=== PATIENT | male | born 1945 | race Caucasian/White ===

== ENCOUNTER 2017-07-06 21:52 | Emergency (ER) | payer MEDICARE, OTHER ==
[2017-07-06] MEDS ORDERED: Acetaminophen/HYDROcodone 325-5 MG Tab PO ONE (23:44)
[2017-07-06] MEDS ORDERED: Acetaminophen/HYDROcodone 325-10 MG Tab PO ONE (23:59)
--- NOTE | 2017-07-07 00:06 | EDM.PDOC ---
ED HPI GENERAL MEDICAL PROBLEM - General Chief Complaint: Headache Stated Complaint: HEADACHE Time Seen by Provider: 07/06/17 22:55 Source of Information: Reports: Patient, RN Notes Reviewed History Limitations: Reports: No Limitations - History of Present Illness INITIAL COMMENTS - FREE TEXT/NARRATIVE: . here with his Chief complaint Left-sided headache History of present illness 72-year-old male had gradual onset of the sided throbbing headache last evening. Waking him every 2 hours during the night and then he would take a couple aspirin tablets for it. because he was taking aspirin, his did not give him his usual hydrocodone, he takes 2 tablets of hydrocodone/acetaminophen 10/325 3 times daily for his back pain.this is because of concerns of acetaminophen overdose. However he has taken a much aspirin that his left ear has decreased hearing. No tinnitus. No loss of vision, no blurred vision No nausea or vomiting with this headache No slurring of speech, facial droop, drooling, weakness of his arms or legs, or balance troubles. Blood pressure was elevated so the helpline recommended he come in promptly for evaluation No chest pain or shortness of breath Headache Pain Score (Numeric/FACES): 6 - Related Data Allergies Allergy/AdvReac Type Severity Reaction Status Date / Time No Known Allergies Allergy Verified 07/06/17 23:32 Home Meds: Home Meds Aspirin 325 mg PO DAILY 08/08/13 [History] Hydrocodone/Acetaminophen [[place] 10-325] 1 - 2 tab PO Q6H PRN 08/08/13 [History] Lisinopril 10 mg PO DAILY 08/08/13 [History] Carvedilol 0.5 tab PO BID 07/06/17 [History] Chlorthalidone 25 mg PO DAILY 07/06/17 [History] amLODIPine [Norvasc] 1 tab PO DAILY 07/06/17 [History] cloNIDine [Catapres] 1 tab PO DAILY 07/06/17 [History] Past Medical History HEENT History: Reports: Cataract, Impaired Vision, Other (See Below) Other HEENT History: retinopathy Cardiovascular History: Reports: Hypertension, [place] Musculoskeletal History: Reports: Fracture Psychiatric History: Reports: Addiction - Past Surgical History HEENT Surgical History: Reports: Cataract Surgery Cardiovascular Surgical History: Reports: Coronary Artery Stent, Other (See Below) Other Cardiovascular Surgeries/Procedures: leg stent GI Surgical History: Reports: Cholecystectomy Neurological Surgical History: Reports: Other (See Below) Other Neurological Surgeries/Procedures: surgery for herniated discs Musculoskeletal Surgical History: Reports: Other (See Below) Other Musculoskeletal Surgeries/Procedures:: foot repair Social & Family History - Tobacco Use Smoking Status *Q: Heavy Tobacco Smoker Years of Tobacco use: 50 Packs/Tins Daily: 2.5 Used Tobacco, but Quit: No Second Hand Smoke Exposure: Yes - Alcohol Use Days Per Week of Alcohol Use: 0 - Recreational Drug Use Recreational Drug Use: No ED ROS GENERAL - Review of Systems Review Of Systems: See Below (vomiting or) Constitutional: Reports: No Symptoms HEENT: Reports: Rhinitis (nothing), Other (he notices some swelling/tenderness under the left side of his jaw). Denies: Eye Pain Respiratory: Reports: No Symptoms (evaluate) Cardiovascular: Reports: No Symptoms GI/Abdominal: Reports: No Symptoms Musculoskeletal: Reports: No Symptoms Skin: Reports: No Symptoms Neurological: Reports: Headache. Denies: Dizziness, Numbness, Paresthesia, Tingling, Difficulty Walking, Change in Speech (once availableusing his) Immunologic: Reports: No Symptoms (blood) - Physical Exam Exam: See Below Exam Limited By: No Limitations General Appearance: Alert, No Apparent Distress, Other (elevated blood pressure other vital signs normal, no difficulty speaking or breathing) Eye Exam: Bilateral Eye: EOMI, Normal Inspection Ears: Normal External Exam, Normal Canal, Normal TMs, Hearing Loss (left ear) Nose: Normal Inspection, Normal Mucosa Throat/Mouth: Normal Inspection, Normal Oropharynx, Normal Voice, No Airway Compromise Head Exam: Atraumatic, Normocephalic Neck: Normal Inspection, Supple, Other (mild tenderness under the left mandible but no discrete swelling noted). No: Lymphadenopathy (R), Lymphadenopathy (L) Respiratory/Chest: No Respiratory Distress, Lungs Clear, No Accessory Muscle Use Cardiovascular: Normal Peripheral Pulses, Regular Rate, Rhythm GI/Abdominal: Soft, Non-Tender Neuro Exam (Abbreviated): Alert, Oriented, No Motor/Sensory Deficits, Other ( normal strength, symmetrical, normal [id number] testing, no facial droop , no difficulty following directions) Back Exam: Normal Inspection Extremities: Normal Inspection, Non-Tender Psychiatric: Normal Affect, Normal Mood Skin Exam: Warm, Dry, Intact, Normal Color, No Rash Course - Vital Signs Last Recorded V/S: Last Vital Signs Temp 36.6 C 07/06/17 23:31 Pulse 97 07/07/17 00:26 Resp 16 07/06/17 23:31 BP 199/108 H 07/07/17 00:26 Pulse Ox 95 07/07/17 00:26 - Orders/Labs/Meds Meds: Medications Discontinued Medications Generic Name Dose Route Start Last Admin Trade Name Annabella PRN Reason Stop Dose Admin Hydrocodone Bitart/Acetaminophen 2 tab 07/06/17 23:44 [place] 325-5 Mg PO 07/06/17 23:45 ONETIME ONE Hydrocodone Bitart/Acetaminophen 2 tab 07/06/17 23:59 07/07/17 00:25 [place] 325-10 Mg PO 07/07/17 00:00 2 tab ONETIME ONE Administration - Re-Assessments/Exams Free Text/Narrative Re-Assessment/Exam: 07/07/17 00:52 healthy-appearing 72-year-old male with new onset of headaches in the last few weeks, left-sided throbbing but no associated neurological symptoms, reassuring examination. Elevated blood pressure but no evidence of hypertensive urgency or emergency. differential diagnoses of his headache includes tension headache, mixed tension migraine, opiate withdrawal headache, among others No history of trauma or signs of on examination to suggest evidence of infection or bleed Hydrocodone/acetaminophen 10/325, 2 tablets by mouth for headache Follow-up primary care persisting symptoms Return to emergency if fever, repeated vomiting, rales balance problems or other new symptoms. Continue usual medications Departure - Departure Time of Disposition: 00:03 Disposition: Home, Self-Care 01 Condition: Good Clinical Impression: Unilateral headache - Discharge Information Instructions: General Headache Without Cause, [id number] Referrals: Preethi Massey MD [Primary Care Provider] - Forms: ED Department Discharge Additional Instructions: continue your current medications Return to emergency promptly if there is loss of vision, loss of use of arm or leg, slurred speech or repeated vomiting or fever
[2017-07-07 00:27] VITALS: BP 199/108
== END 2017-07-07 00:43 | disposition home or self-care (01) ==
LOC: JP.ED 21:52
DX: R51 Headache (principal); I10 Essential (primary) hypertension; E78.00 Pure hypercholesterolemia, unspecified; Z79.82 Long term (current) use of aspirin
CPT/HCPCS: 99284; A9270; 99283

== ENCOUNTER 2021-07-01 14:14 | Emergency (ER) | payer OTHER ==
[2021-07-01] MEDS ORDERED: Albuterol/Ipratropium 3.0-0.5 MG/3 ML Neb Soln NEB ONE (14:39)
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
--- NOTE | 2021-07-01 15:25 | CR ---
FOOT RIGHT 3 views CLINICAL HISTORY:Previous injury FINDINGS:Bones are osteopenic. There is some osteoarthritic change in the tarsal junctions. There are diffuse arterial calcifications. This can be seen with diabetes. IMPRESSION: Osteoporotic changes Osteoarthritic changes noted tarsal junctions No fracture
--- NOTE | 2021-07-01 15:31 | CR ---
CHEST: 2 view CLINICAL HISTORY:Dyspnea COMPARISON:None FINDINGS: Heart size and pulmonary vascularity are normal. There are atherosclerotic changes in the aorta. There is diffuse interstitial prominence and some minimal patchy density suggesting a diffuse pneumonitis. There is a small pleural effusions IMPRESSION: Diffuse predominantly interstitial infiltrate or less likely interstitial edema. Findings are most consistent with pneumonitis Minimal bibasal effusions
[2021-07-01] MEDS ORDERED: Lisinopril 10 MG Tab PO ONE (17:01)
[2021-07-01] MEDS ORDERED: Furosemide 20 MG Tab PO ONE (17:01)
[2021-07-01 18:10] VITALS: BP 157/65; PULSE 95
[2021-07-01] MEDS ORDERED: fentaNYL 100 MCG/2 ML SDV IM ONE (18:32)
--- NOTE | 2021-07-02 06:35 | CRLCT ---
Final Report: INDICATION: Abdominal pain. COMPARISON: None available TECHNIQUE: CT examination of the abdomen and pelvis was performed without contrast enhancement using 2 mm thick axial sections from the lung bases through the pubic symphysis. Oral contrast was not administered. Please note that all CT scans at this facility use dose modulation, iterative reconstruction, and/or weight-based dosing when appropriate to reduce radiation dose to as low as reasonably achievable. FINDINGS: High-density material is scattered throughout the colon extending to the rectum, consistent with previous oral contrast administration or possibly from antacids. In the abdomen, the liver is seen to have prominent intrahepatic ductal dilatation. This is associated with prominent dilatation of the common bile duct to 18 mm and surgical clips from cholecystectomy. The dilatation extends through the pancreatic head, although the common bile duct in the pancreatic head is not quite as dilated, measuring 10 millimeters. The findings are consistent with post-cholecystectomy status. No obstructing mass or definite choledocholithiasis is seen. Recommend correlation with the patient`s LFTs. There is mild calcification in the pancreatic head with a few calcifications scattered throughout the pancreatic body and tail consistent with previous pancreatitis. The pancreas is otherwise normal in appearance with no sign of acute pancreatitis or mass. The liver is otherwise normal in appearance. The spleen, pancreas, and adrenals are normal in appearance. The unenhanced kidneys are normal in appearance. There is symmetric perinephric stranding suggesting previous inflammatory disease. Vascular calcifications are present. The abdominal aorta is normal in caliber with no sign of dilatation. There is no sign of retroperitoneal mass or adenopathy. The stomach, loops of small bowel, and colon in the abdomen are normal in appearance. In the pelvis, the appendix is nonvisualized, but there is no sign of an inflammatory process in the area of the appendix. The loops of small bowel and colon in the pelvis are normal in appearance. The prostate is mildly enlarged and is otherwise normal in appearance. The urinary bladder is normal in appearance. There is no sign of pelvic or inguinal mass or adenopathy. There is no sign of free air or free fluid in the abdomen or pelvis. There are mild right greater than left pleural effusions with moderate left greater than right posterior basilar atelectasis adjacent to the effusions. There is triple-vessel coronary calcification which appears to be moderate. There is moderate calcification of the aortic valve annulus. There is mild calcification of the mitral valve annulus. The heart is normal in size. There appears to be increased density throughout all of the osseous structures with scattered, somewhat heterogeneous areas of hypodensity in the spine and sacrum. The findings are worrisome for diffuse sclerotic metastasis as seen in prostate carcinoma. Recommend correlation with the patient`s history and laboratory examination. There is severe L4-5 disc degenerative disease. IMPRESSION: Diffusely sclerotic osseous structures throughout the entire abdomen and pelvis raising the possibility of diffuse metastatic disease such as seen in prostate carcinoma. Nothing seen that would correlate with the history of abdominal pain. No sign of bowel obstruction or ileus. No sign of any inflammatory process involving the bowel. No sign of any significant abnormality of the urinary systems. CT of the abdomen shows prominent dilatation of the intrahepatic and extrahepatic biliary system extending into the pancreatic head, without quite as much dilatation in the pancreatic head. The findings could simply be from post cholecystectomy status and patient age, but recommend correlation with the patient`s LFTs. Previous pancreatitis with calcifications more prominent in the pancreatic head that elsewhere. No sign of pancreatitis currently. CT of the pelvis shows mild enlargement of the prostate. Small right greater than left pleural effusions with moderate right and mild left posterior basilar consolidative atelectasis adjacent to the effusions. Please note that all CT scans at this facility use dose modulation, iterative reconstruction, and/or weight-based dosing when appropriate to reduce radiation dose to as low as reasonably achievable. Dictated by Rupert Rhodes MD @ 07/01/2021 6:26:23 PM Signed by: Rupert Rhodes MD @07/01/2021 6:26:23 PM (Electronic Signature) MTDD
== END 2021-07-01 19:40 | disposition home or self-care (01) ==
LOC: JP.ED 14:14
DX: J40 Bronchitis, not specified as acute or chronic (principal); I11.0 Hypertensive heart disease with heart failure; I50.9 Heart failure, unspecified; R10.84 Generalized abdominal pain; Z79.82 Long term (current) use of aspirin; Z79.899 Other long term (current) drug therapy; Z95.5 Presence of coronary angioplasty implant and graft; Z72.0 Tobacco use; Z20.822 Contact with and (suspected) exposure to COVID-19
CPT/HCPCS: 36415; 71046; 73630; 74176; 80048; 80076; 82150; 83690; 84484; 85025; 87635; 94640; 96372; 99285; A9270; J3010; J7620-GY; U0002